=== PATIENT | female | born 1940 | race Caucasian/White ===

== ENCOUNTER 2017-06-20 06:50 | Inpatient (IN) | payer MEDICARE, OTHER ==
[~2017-06-20 06:50] MED LIST: CELECOXIB 100 MG CAPSULE PO ONE; DAPTOMYCIN 500 MG/VIAL IV ONE; FAMOTIDINE 20MG TABLET PO ONE; MECLIZINE 25 MG TABLET PO ONE; METOCLOPRAMIDE 10 MG TABLET PO ONE
[2017-06-20 07:41] LABS: ABO GROUP O; ANTIBODY SCREEN NEGATIVE (NEGATIVE); RH TYPE POSITIVE
[2017-06-20] MEDS ORDERED: ACETAMINOPHEN 325 MG TAB PO PRN (11:18)
[2017-06-20] MEDS ORDERED: HYDROCODONE/APAP 10/325 TABLET PO PRN (11:18)
[2017-06-20] MEDS ORDERED: NALOXONE 0.4 MG/1 ML VIAL IVP PRN (11:18)
[2017-06-20] MEDS ORDERED: DIPHENHYDRAMINE HCL 25 MG CAPSULE PO PRN (11:18)
[2017-06-20] MEDS ORDERED: BISACODYL 10 MG SUPP RC PRN (11:18)
[2017-06-20] MEDS ORDERED: ONDANSETRON HCL IV 4 MG/2 ML VIAL IVP PRN (11:18)
[2017-06-20] MEDS ORDERED: KETOROLAC 30 MG/ML VIAL IVP PRN ×2 (11:18)
[2017-06-20] MEDS ORDERED: ZOLPIDEM TARTRATE 5 MG TABLET PO PRN (11:18)
[2017-06-20] MEDS ORDERED: AL HYDROX/MAG HYDROX 30ML UD PO PRN (11:18)
[2017-06-20] MEDS ORDERED: TRAMADOL HCL 50 MG TABLET PO PRN (11:18)
[2017-06-20] MEDS ORDERED: ACETAMINOPHEN W/ CODEINE 300MG/60MG TABLET PO PRN ×2 (11:18)
[2017-06-20] MEDS ORDERED: MAGNESIUM HYDROXIDE 30 ML UDC PO PRN (11:18)
[2017-06-20] MEDS ORDERED: HYDROMORPHONE HCL 2 MG/ML VIAL IM PRN (11:18)
[2017-06-20] MEDS ORDERED: RIVAROXABAN 10 MG TABLET PO SCH (11:30)
--- NOTE | 2017-06-20 14:34 | Rehab Evaluation ---
Patient Information - Patient Information Diagnosis: DJD L Knee Ordered Treatment: PT Evaluate and Treat Status: Initial Evaluation Surgery: Yes (L TKA) Date of Surgery: 06/20/17 Past Medical/Surgical Hx: PAST MEDICAL/SURGICAL HISTORY Past Surgical History RTKA 6-17 tonsils lumpectomy left breast malignant hyst cystocele/rectocele cats bilat c scope PMH - Respiratory Hx Respiratory Disorders Yes Hx Pneumonia Yes Hx Sleep Apnea Yes Hx of CPAP Yes PMH - Cardiovascular Hx Cardiovascular Disorders Yes Hx Abnormal EKG Yes Hx Edema Yes: lymphedema LE Hx Irregular Heartbeat Yes: one episode of a fib resolved pt is on meds Hx Palpitations Yes Hx of Mitral Valve Prolapse Yes: minimal Exercise Tolerance Good PMH - Neuro Hx Neurological Disorders Yes Hx Syncope Yes: had episode 1 wk ago of terrible abdominal pain and then passed see below Comment: out for 5 minutes very low b/p spent night in hosp neg w/u sees cardio 3-21 PMH - GI Hx Gastrointestinal Disorders Yes Hx Gastroesophageal Reflux Yes PMH - Hx Genitourinary Disorders Yes Hx Urinary Tract Infection Yes: susceptible to them PMH - Endocrine Hx Endocrine Disorders Yes Hx Thyroid Disease Yes: hypo on meds Comment: parathyroid goiter no problems swallowing or laying down small PMH - Musculoskeletal Hx Musculoskeletal Disorders Yes Hx Arthritis Yes Hx Osteoporosis osteopenia PMH - Psych Hx Psychiatric Problems Yes Hx Anxiety Yes Hx Depression Yes PMH - Hematology/Oncology Hx Hematology/Oncology Yes Disorders Hx Cancer Yes: breast left Hx Radiation Therapy Yes Comment: on eliquis DO NOT USE LEFT ARM Social History: Detail (The patient lives in a one story home with her spouse. There are 2 steps to enter with a railing on the left when entering the home. The patient's bathroom has a tub/shower combination, but she does not have/use a shower seat. Her toilet is elevated. She has grab bars in the shower, but does not around the toilet. She will be using a 4WW for ambulation) Precautions: Other (WBAT on L) - Time With Patient Total Time Spent With Patient (Min): 30 Treatment Procedures: Detail (PT Initial Evaluation) Subjective Information - Subjective Information Per Patient (The patient states that she is not having any pain at this time. She says that she has slight dizziness, but felt that she was okay to complete therapy activities.) Objective Data - Pain Pain Present: No Pain Intensity: 0 Pain Scale Used: Numeric (1 - 10) - Mental Status Patient Orientation: Oriented x3 - ROM Within normal limits (L Knee limited as expected s/p L TKA. Other joints were not formally assessed, but were within functional limits for activity.) - Strength/Tone Within normal limits (L Knee limited as expected s/p L TKA. Other joints were not formally assessed, but were within functional limits for activity.) - Bed Mobility Independent (The patient was able to transfer from supine to sit independently, and was able to scoot to the middle of the bed independently) - Transfers Independent (The patient was independent with sit to stand and stand to sit. The patient was also independent with toilet transfer each direction.) - Balance Balance Sitting: Good (No LOB while sitting at the bedside prior to ambulation. Had complaints of dizziness, but seemed to alleviate symptoms with moving around.) Balance Standing: Good (No LOB with immediate standing at the bedside after sit to stand. The patient had no LOB with gait activities completed.) - Sensation Intact - Gait Detail (The patient used a 4WW and WBAT on L during ambulation. She was able to ambulate from her room, to the [facility], down to the end [facility] floor, and back to her room (total of 200 feet). She had no LOB with gait activities.) Therapy Assessment - Therapy Assessment Detail (The patient was independent with bed mobility and transfers, and had functional strength for activities. The patient required supervision for gait only, and had good standing balance throughout. She did have ROM and strength limitations as expected s/p L TKA. The patient's gait skills on stairs were not assessed at initial evaluation. The patient should progress well with inpatient PT.) Patient Education - Patient Education Teaching Topic: Exercise/Activity (HEP was reviewed, which included: Quad sets, glute. sets, hamstring sets/Heel slides, SLR, and ankle pumps. The patient was instructed to complete 10 reps of each exercise and complete 1-2x/day) Response: Return Demonstration, Verbalize Understanding Teaching Method: Discussion, Demonstration Teaching Recipient: Patient Barriers To Learning: None Problem List - Problem List Physical Therapy Problem List: Detail (1) Ability to ascend/descend stairs not assessed 2) Decreased ROM and strength in L knee) Goals - Goals Physical Therapy Goals: 1) The patient will be able to ascend/descend 2 steps with supervision for safe entry into the home environment. 2) The patient will be independent with HEP to increase ROM and strength in L knee for increased functionality in the home. Prognosis - Prognosis Good Plan - Plan Physical Therapy Plan: The patient will be seen 1-2x/day M-F for gait training ( including stairs) and LE strengthening activities.
[2017-06-20] MEDS ORDERED: HYDROMORPHONE HCL 2 MG/ML VIAL IV ONE ×2 (14:48→15:18)
[2017-06-20] MEDS ORDERED: BUPIVACAINE 0.5% W/EPI MPF 30 ML VIAL IVP ONE (14:48)
[2017-06-20] MEDS ORDERED: TRANEXAMIC ACID 1,000 MG/10 ML ML IV ONE (14:48)
[2017-06-20] MEDS ORDERED: LIDOCAINE 2% MDV (20MG/ML) 20ML VIAL IV ONE (15:18)
[2017-06-20] MEDS ORDERED: MEPIVACAINE HCL/PF (POLOCAINE) 2% 20MG/ML VIAL INJ ONE (15:18)
[2017-06-20] MEDS ORDERED: ONDANSETRON HCL IV 4 MG/2 ML VIAL IVP ONE ×2 (15:18→16:30)
[2017-06-20] MEDS ORDERED: DIPHENHYDRAMINE HCL IV 50 MG/ML VIAL IVP ONE (15:18)
[2017-06-20] MEDS ORDERED: FENTANYL PF 100MCG/2ML VIAL IV ONE (15:18)
[2017-06-20] MEDS ORDERED: MIDAZOLAM HCL 2MG/2ML VIAL IV ONE (15:18)
[2017-06-20] MEDS ORDERED: PROPOFOL 10 MG/ML VIAL IV ONE (15:18)
[2017-06-20] MEDS: POTASSIUM CHLORIDE/D5-0.9%NACL 20 MEQ/1,000 ML BAG IV SCH ×2 (15:37→19:48)
[2017-06-20] MEDS: CLINDAMYCIN PHOS/D5W 900MG 900 MG/50 ML BAG IVPB SCH (17:33)
[2017-06-20] MEDS: HYDROCODONE/APAP 10/325 TABLET PO PRN (21:42)
[2017-06-20] MEDS: DOCUSATE SODIUM 100 MG CAPSULE PO SCH (21:42)
[2017-06-20] MEDS: FLUOXETINE HCL 20 MG CAPSULE PO SCH (21:42)
[2017-06-21] MEDS: CLINDAMYCIN PHOS/D5W 900MG 900 MG/50 ML BAG IVPB SCH (00:27)
[2017-06-21] MEDS: POTASSIUM CHLORIDE/D5-0.9%NACL 20 MEQ/1,000 ML BAG IV SCH (04:12)
[2017-06-21] MEDS: HYDROCODONE/APAP 10/325 TABLET PO PRN ×2 (05:36→11:19)
[2017-06-21] MEDS ORDERED: LEVOTHYROXINE SODIUM 50 MCG TABLET PO SCH (07:00)
[2017-06-21] MEDS ORDERED: PANTOPRAZOLE SODIUM 40 MG TABLET PO SCH (07:00)
--- NOTE | 2017-06-21 07:55 | Operative Note ---
DATE: 06/20/2017. PREOPERATIVE DIAGNOSIS: ENDSTAGE ARTHROSIS OF THE LEFT KNEE. POSTOPERATIVE DIAGNOSIS: ENDSTAGE ARTHROSIS OF THE LEFT KNEE. PROCEDURE: Cemented left total knee arthroplasty using [employer] II components, with a size 4 [place] chrome femur, a size 3 stemmed tibial baseplate, and a 13-mm lipped tibial insert. The patella was not resurfaced because it was too thin. STAFF SURGEON: Jv Lawrence M.D. ANESTHESIA: SPINAL. PREPARATION: ChloraPrep. INDIVIDUAL CONSIDERATIONS: This lady is morbidly obese with a body mass index of 40. Because of this, dissection was much more difficult and exposure was more difficult. She had two to three inches of fat around her knee. PROCEDURE: The patient was taken to the operating room and placed supine on the operating table. She had successful induction of a spinal anesthetic. Her left lower extremity was prepped and draped in the usual fashion. The limb was elevated. The tourniquet was inflated to 250 mm Hg. Sharp dissection was carried down through the skin and subcutaneous tissues. Small veins were coagulated with a Bovie. A medial arthrotomy was performed. The patella was everted and the knee was flexed. She had exposed bone in the notch and bone loss in the medial compartment. The fat pad was resected, the anterior cruciate ligament was sacrificed, and provisional anterior meniscectomies were performed. The capsule was released from the medial proximal tibia. The initial femoral sdv pilot/navigator/dds operator hole was then made freehand. The intramedullary femoral cutting jig was placed. It was cut in 7.0 degrees of valgus, adjusted for rotation, and secured with pins for a 10 mm resection. The initial transverse cut was then made. Skin guide was placed through the anterior and posterior sdv pilot/navigator/dds operator holes. It was found that a size 4 would be appropriate. I needed to translate the cutting block anteriorly 2.0 mm so as not to notch. After making the cuts and trimming osteophytes, a size 4 trial was placed and was found to fit well. The tibia was brought forward and the remainder of the meniscal remnants were removed with a Bovie. The extra-articular tibial cutting jig was placed, and it was cut in neutral with a 3-degree AP slope. Care was taken to adjust for rotation and flexion using the extra-articular alignment guide and bony landmarks. It was set for a 9 mm resection, keyed off the high lateral side, and secured with pins. When cutting the tibia, care was taken to preserve the posterior cruciate ligament insertion on the tibia. Medial osteophytes were removed, and I was able to fit a size 3 baseplate. It was adjusted for rotation and secured with pins. With an 13 mm trial and the femoral trial, there was excellent motion and stability. Ligamentous balance, rotation, and alignment were thought to be normal. The femoral sdv pilot/navigator/dds operator holes were impacted and the triflange tibial stamp was impacted, and these trial components were removed. The patient unfortunately had a 19 mm thick patella. This was way too thin to resurface, especially since she is morbidly obese. I just had to trim osteophytes. The tourniquet was let down briefly to get the bleeders posteriorly and was then placed back up again. The knee was then thoroughly irrigated out with pulsatile Betadine and saline to remove any visual or palpable debris. Bony surfaces were then dried. A size 3 stemmed tibial baseplate was cemented into place, followed by impaction of the 13 mm lipped tibial insert, followed by cementing in the size 4 [place] chrome femur. Implant surfaces were compressed and excess cement was removed. After the cement had set, there was excellent motion and stability. Ligamentous balance, rotation, alignment, and patellofemoral tracking were normal, and no lateral release was required. Again, thorough irrigation. The periosteum and subcutaneous and skin were infiltrated with 30 mL of 0.5% Marcaine with epinephrine. The capsule was then closed with a running #2 Quill, the subcutaneous was closed in multiple layers of #0 Quill, and the skin was closed with nikolai. A total of 30 mL of saline was mixed with 1.0 gm of tranexamic acid which was injected into the knee through a sterile 18-gauge needle. She had received 1.0 gm of tranexamic acid intravenous prior. The patient tolerated the procedure well. Needle and sponge counts were correct. Estimated blood loss was minimal. She was taken back to Recovery in good condition. There were no complications. JOB NUMBER: [id number] MTDD
[2017-06-21 08:19] LABS: HEMATOCRIT 38.5 % (35.0-47.0); HEMOGLOBIN 12.2 gm/dl (11.6-16.0)
[2017-06-21 08:42] LABS: BLOOD UREA NITROGEN 11 mg/dL (8-23); CREATININE 0.7 mg/dL (0.5-0.9); EST GLOMERULAR FILTRATION RATE > 60 mL/min; GLUCOSE,RANDOM 143 mg/dL (74-109)
--- NOTE | 2017-06-21 09:26 | Physical Therapy Tx Note ---
Physical Therapy Tx Note - Treatment Note Tolerated: Good (Pt. required 1 rest period with ambulation for 20 seconds. Pt. denied nausea/SOB with ambulation training, just fatigue. Pt. independently ambulated 52 feet with four wheeled walker, and ascended and descended three steps with single point cane appropriately.) Total Time Spent With Patient: 45 Physical Therapy Tx Note: Detail (Pt. completed gait training and HEP review. She appropriately ascended and descended 3 steps. Pt. verbalized good understanding of precautions and was indepdendent with bed mobility and transfer. Pt. did exhibit quad weakness that limits independent SLR with bed mobility, but did express that she has a strap for home and will help to lift her involved LE via strap. Pt. was left supine and nursing was notified of pt.' s status, nursing stated the pt. is to have another dressing applied following PT so the pt. was not hooked up to IPC or cryo. Pt. was left supine with call light availble.) Physical Therapy Problem List: Detail ( 2) Decreased ROM and strength in L knee) Physical Therapy Goals: Pt. has met all inpatient PT goals. Prognosis: Good (Pt. is appropriate for D/C to home environment with assistance from and use of single point cane when using stairs, as demonstrated today with gait training for safe ambulation. Pt.'s pain elevated to a 4/10 at the highest.) Physical Therapy Plan: D/C pt. from inpatient PT.
[2017-06-21] MEDS ORDERED: CHOLECALCIFEROL 1,000 UNIT TABLET PO SCH (10:00)
[2017-06-21] MEDS ORDERED: DIGOXIN 125 MCG TABLET PO SCH (10:00)
[2017-06-21] MEDS ORDERED: VERAPAMIL ER 120 MG TABLET PO SCH (10:00)
[2017-06-21] MEDS ORDERED: APIXABAN 5MG TABLET PO SCH (10:00)
[2017-06-21] MEDS ORDERED: MULTIVITAMINS/MINERALS TABLET PO SCH (10:00)
[2017-06-21] MEDS ORDERED: FERROUS SULFATE 325 MG TAB PO SCH (10:00)
--- NOTE | 2017-06-21 10:45 | Rehab Evaluation ---
Patient Information - Patient Information Diagnosis: DJD L Knee Ordered Treatment: OT Evaluate and Treat Status: Initial Evaluation Surgery: Yes (L TKA) Date of Surgery: 06/20/17 Past Medical/Surgical Hx: PAST MEDICAL/SURGICAL HISTORY Past Surgical History RTKA 6-17 tonsils lumpectomy left breast malignant hyst cystocele/rectocele cats bilat c scope PMH - Respiratory Hx Respiratory Disorders Yes Hx Pneumonia Yes Hx Sleep Apnea Yes Hx of CPAP Yes PMH - Cardiovascular Hx Cardiovascular Disorders Yes Hx Abnormal EKG Yes Hx Edema Yes: lymphedema LE Hx Irregular Heartbeat Yes: one episode of a fib resolved pt is on meds Hx Palpitations Yes Hx of Mitral Valve Prolapse Yes: minimal Exercise Tolerance Good PMH - Neuro Hx Neurological Disorders Yes Hx Syncope Yes: had episode 1 wk ago of terrible abdominal pain and then passed see below Comment: out for 5 minutes very low b/p spent night in hosp neg w/u sees cardio 3-21 PMH - GI Hx Gastrointestinal Disorders Yes Hx Gastroesophageal Reflux Yes PMH - Hx Genitourinary Disorders Yes Hx Urinary Tract Infection Yes: susceptible to them PMH - Endocrine Hx Endocrine Disorders Yes Hx Thyroid Disease Yes: hypo on meds Comment: parathyroid goiter no problems swallowing or laying down small PMH - Musculoskeletal Hx Musculoskeletal Disorders Yes Hx Arthritis Yes Hx Osteoporosis osteopenia PMH - Psych Hx Psychiatric Problems Yes Hx Anxiety Yes Hx Depression Yes PMH - Hematology/Oncology Hx Hematology/Oncology Yes Disorders Hx Cancer Yes: breast left Hx Radiation Therapy Yes Comment: on eliquis DO NOT USE LEFT ARM Premorbid Status: Detail (Pt lives with spouse in a 1 story house with basement , laundry is in the basement. She has 2 steps and 1 handrailing at the garage entrance. She has a tub/shower combination with grab bar, no seat and an elevated toilet with riser, no grab bar. She is Ind with meal prep, laundry, home mgmt and self cares although spouse will be assisting as needed. She has a 4 wheeled walker and straight cane.) Precautions: Reed, Fall, Other (WBAT on L) - Time With Patient Total Time Spent With Patient (Min): 35 Treatment Procedures: Detail (OT eval low complexity) Subjective Information - Subjective Information Per Patient Objective Data - Pain Pain Present: No (Pt reports no pain currently) - Mental Status Patient Orientation: Oriented x3 - Visual Perception Appears within normal limits for therapeutic activities - ROM Within normal limits (Bob UE AROM WNL) - Strength/Tone Within normal limits (Bob UE strength WNL) - Coordination Appears within normal limits for therapeutic activities - Bed Mobility Independent (Ind with supine to sit.) - Transfers Independent (Ind with sit to stand from EOB.) - Balance Balance Sitting: Good Balance Standing: Fair - Sensation Intact - Gait Detail (Pt ambulating in room with 4 wheeled walker Indly.) - ADL's/IADL's Detail (Pt educated and demonstrates learning of modified LE dressing techniques. She required min assist to pull heel of left foot into shoe due to swelling and wrap. Reviewed shower and kitchen safety/modifications and pt verbalized understanding.) Therapy Assessment - Therapy Assessment Detail (Pt is safe and Ind with self care activities.) Problem List - Problem List Physical Therapy Problem List: Detail ( 2) Decreased ROM and strength in L knee) Occupational Therapy Problem List: Detail (No current OT problems identified.) Goals - Goals Physical Therapy Goals: Pt. has met all inpatient PT goals. Occupational Therapy Goals: No current OT goals identified. Prognosis - Prognosis Good Plan - Plan Physical Therapy Plan: D/C pt. from inpatient PT. Occupational Therapy Plan: No further IP OT recommended. Thank you for this referral.
[2017-06-21] MEDS: DOCUSATE SODIUM 100 MG CAPSULE PO SCH (11:16)
[2017-06-21] MEDS: FLUOXETINE HCL 20 MG CAPSULE PO SCH (11:18)
--- NOTE | 2017-06-21 19:52 | Discharge Summary ---
DATE OF ADMISSION: 06/20/2017 DATE OF DISCHARGE: 06/21/2017 DATE OF SURGERY: 06/20/2017 HISTORY: Mariela is a delightful 76-year-old female who presents with end-stage arthrosis of her left knee. She was admitted after a left total knee arthroplasty. Postoperatively, she did great. Her hospital course was unremarkable. Her discharge hemoglobin was 12.2. DISCHARGE INSTRUCTIONS: The plan is to discharge her to home in the care of her family. Home PT and Visiting Nurse have been arranged. She will be given [place] for pain. She chronically takes Eliquis, so she will resume that and that will cover her for DVT prophylaxis. The Visiting Nurse will remove her sutures in two weeks and she will follow-up in my office in four weeks. PRIMARY DIAGNOSIS/PRIMARY DIAGNOSIS: END-STAGE ARTHROSIS OF THE LEFT KNEE. OPERATIONS AND PROCEDURES: CEMENTED LEFT TOTAL KNEE ARTHROPLASTY. JOB NUMBER: [id number] MTDD
[2017-06-22] MEDS ORDERED: LEVOTHYROXINE SODIUM 25 MCG TABLET PO SCH (07:00)
== END 2017-06-21 15:02 | disposition home health service (06) | DRG 470 ==
LOC: MEDSURG 06:50
PROVIDERS: ADMIT Orthopaedic Surgery; ATTEND Orthopaedic Surgery
PROC: 0SRD069 Replacement of Left Knee Joint with Oxidized Zirconium on Polyethylene Synthetic Substitute, Cemented, Open Approach (ICD-10-PCS; principal; 2017-06-20 09:00)
DX: M17.12 Unilateral primary osteoarthritis, left knee (principal); I48.91 Unspecified atrial fibrillation; E78.00 Pure hypercholesterolemia, unspecified; Z79.01 Long term (current) use of anticoagulants
CPT/HCPCS: 80048; 85014; 85018; 86850; 86900; 86901; 97116; 97530; J0670; J1200; J2405; J3480; J3490